=== PATIENT | female | born 1995 ===

== ENCOUNTER 2021-09-02 23:31 | Inpatient (IN) | payer MEDICAID ==
[2021-09-03] MEDS ORDERED: TERBUTALINE 1 MG/1 ML INJ SUB-Q SCH
[2021-09-03] MEDS ORDERED: LACTATED RINGERS 500 ML IV ONE
[2021-09-03] MEDS ORDERED: NIFEdipine*For Tocolysis only* 10 MG CAPSULE PO STA (00:31)
[2021-09-03] MEDS ORDERED: MORPHINE 2 MG/1 ML INJ IM ONE (00:34)
[2021-09-03] MEDS: NITROFURANTOIN MONOHYD/M-CRYST 100 MG CAP PO SCH ×3 (02:28→21:54)
[2021-09-03] MEDS ORDERED: miSOPROStol 200 MCG TAB PR PRN (13:24)
[2021-09-03] MEDS ORDERED: MAGNESIUM SULFATE 4 GM/100 ML BAG IV ONE (14:04)
[2021-09-03] MEDS ORDERED: MAGNESIUM SULFATE 40GM/1000ML 40 GM/1,000 ML BAG IV SCH (15:00)
[2021-09-03] MEDS ORDERED: DOCUSATE SODIUM 100 MG CAP PO PRN (17:33)
--- NOTE | 2021-09-03 18:10 | History and Physical Report ---
History of Present Illness Date of examination: 09/03/21 Date of admission: 09/03/2021 Chief complaint: I'm in pain History of present illness: Pt is a 26 year old who presents with complaint of left sided back pain with concurrent abdominal pain. Pt was also having contractions on presentation. Pt rates the pain as 9/10. She has also be writhing and vomiting. Past History - Obstetrical History : 1 Medications and Allergies Allergies Allergy/AdvReac Type Severity Reaction Status Date / Time No Known Allergies Allergy Unverified 09/01/21 15:21 Home Medications Medication Instructions Recorded Confirmed Last Taken Type Nitrofurantoin [place]/M-Cryst 100 mg PO Q12HR #14 capsule 09/02/21 Unknown Rx [Macrobid CAP] Active Meds: Active Medications Acetaminophen (Acetaminophen 325 Mg Tab) 650 mg PO Q4H PRN PRN Reason: Pain MILD(1-3)/Fever >100.5/BARKER Docusate Sodium (Docusate Sodium 100 Mg Cap) 100 mg PO Q12H PRN PRN Reason: Constipation Lactated Ringer's (Lactated Ringers) 1,000 mls @ 125 mls/hr IV DIRECT GA Magnesium Sulfate (Magnesium Sulfate 40gm/1000ml) 40 gm in 1,000 mls @ 50 mls/hr IV DIRECT GA Last Admin: 09/03/21 15:10 Dose: 2 gm/hr, 50 mls/hr Magnesium Sulfate (Magnesium Sulfate 4gm/100ml) 4 gm in 100 mls @ 25 mls/hr IV ONCE ONE Stop: 09/03/21 18:03 Last Admin: 09/03/21 14:39 Dose: 25 mls/hr Cefazolin Sodium (Ancef/Ns 1 Gm/50 Ml) 1 gm in 50 mls @ 100 mls/hr IV Q8H GA; Protocol Misoprostol (Misoprostol 200 Mcg Tab) 800 mcg WA ONCE PRN PRN Reason: Uterine Bleeding Morphine Sulfate (Morphine 2 Mg/1 Ml Inj) 2 mg IV Q4H PRN PRN Reason: Pain, Moderate (4-6) Multivitamins/Iron/Calcium ( Qwb73-Rv Fumarate-Folic Acid Vit Tab) 1 each PO QDAY GA Nitrofurantoin Macrocrystals (Nitrofurantoin Monohyd/M-Cryst 100 Mg Cap) 100 mg PO Q12HR GA Last Admin: 09/03/21 14:37 Dose: 100 mg Terbutaline Sulfate (Terbutaline 1 Mg/1 Ml Inj) 0.25 mg SUB-Q Q20MIN [facility] Stop: 09/05/21 00:01 - Vital Signs Vital signs: Vital Signs Pulse BP Pulse Ox 95 H 127/78 98 09/02/21 23:56 09/02/21 23:56 09/02/21 23:56 Temp Pulse Resp BP Pulse Ox 98 F 110 H 20 102/59 96 09/03/21 16:37 09/03/21 17:40 09/03/21 13:50 09/03/21 17:40 09/03/21 17:38 - Obstetrical FHR: auscultation normal Cervical Dilatation: 0 Results All other labs normal.
[2021-09-03] MEDS: ceFAZolin/NS 1 GM/50 ML 1 GM/50 ML BAG IV SCH (18:28)
[2021-09-03] MEDS: MORPHINE 2 MG/1 ML INJ IV PRN ×2 (18:29→21:56)
[2021-09-03 19:52] LABS: Basophils % (Auto) 0.1 % (0.0-1.8); Hematocrit 37.5 % (30.3-42.9); Hemoglobin 12.9 gm/dl (10.1-14.3); Lymphocytes # (Auto) 1.1 K/mm3 (1.2-5.4); Lymphocytes % (Auto) 7.2 % (13.4-35.0); Mean Corpuscular HGB Conc 34 % (30-34); Mean Corpuscular Volume 97 fl (79-97); Monocytes # (Auto) 1.3 K/mm3 (0.0-0.8); Monocytes % (Auto) 8.3 % (0.0-7.3); Platelet Count 210 K/mm3 (140-440); Red Blood Count 3.87 M/mm3 (3.65-5.03); Red Cell Distribution Width 12.7 % (13.2-15.2)
[2021-09-03] MEDS: LACTATED RINGERS 1,000 ML IV SCH (21:33)
[2021-09-04] MEDS: MORPHINE 2 MG/1 ML INJ IV PRN ×3 (01:57→22:08)
[2021-09-04] MEDS: ceFAZolin/NS 1 GM/50 ML 1 GM/50 ML BAG IV SCH ×4 (07:32→22:12)
[2021-09-04] MEDS: PRENATAL VIT27-FE FUMARATE-FOLIC ACID VIT TAB PO SCH (10:14)
[2021-09-04] MEDS: NITROFURANTOIN MONOHYD/M-CRYST 100 MG CAP PO SCH ×2 (10:14→22:06)
[2021-09-04] MEDS ORDERED: ONDANSETRON 4 MG/2 ML INJ ONE (17:38)
--- NOTE | 2021-09-04 23:52 | Progress Note ---
Assessment and Plan 26 year old G1 presenting with pain that is highly suspicious for pyelonephritis or kidney stones. Pt also complains of pain with normal movement. Pt seems to have minimal pain tolerance. I explained to patient that movement is normal part of and that we can not stop it. I did explain that her pain is likely renal in origin and is just radiating to other parts of abdomen. Will continue on antibiotics. Will continue on procardia. Order renal ultrasound. Heating pad to back to help with discomfort. Subjective - Subjective Date of service: 09/04/21 Interval history: Pt is a 26 year old who presents with complaint of left sided back pain with concurrent abdominal pain. Pt was also having contractions on presentation. Pt rates the pain as 9/10. She has also be writhing and vomiting. Patient reports: other (back pain) Objective - Vital Signs Vital Signs: Vital Signs - 12hr 09/04/21 09/04/21 09/04/21 11:53 11:58 12:03 Temperature Pulse Rate 99 H 104 H 101 H Respiratory Rate Blood Pressure Blood Pressure [Right] O2 Sat by Pulse 97 96 96 Oximetry O2 Sat by Pulse Oximetry [ Bilateral] 09/04/21 09/04/21 09/04/21 12:08 12:13 12:18 Temperature Pulse Rate 106 H 105 H 100 H Respiratory Rate Blood Pressure Blood Pressure [Right] O2 Sat by Pulse 96 96 96 Oximetry O2 Sat by Pulse Oximetry [ Bilateral] 09/04/21 09/04/21 09/04/21 12:23 12:28 12:33 Temperature Pulse Rate 97 H 107 H 105 H Respiratory Rate Blood Pressure Blood Pressure [Right] O2 Sat by Pulse 96 97 98 Oximetry O2 Sat by Pulse Oximetry [ Bilateral] 09/04/21 09/04/21 09/04/21 12:38 12:43 12:48 Temperature Pulse Rate 103 H 101 H 101 H Respiratory Rate Blood Pressure Blood Pressure [Right] O2 Sat by Pulse 97 97 97 Oximetry O2 Sat by Pulse Oximetry [ Bilateral] 09/04/21 09/04/21 09/04/21 12:53 12:58 13:03 Temperature Pulse Rate 104 H 108 H 100 H Respiratory Rate Blood Pressure Blood Pressure [Right] O2 Sat by Pulse 97 96 97 Oximetry O2 Sat by Pulse Oximetry [ Bilateral] 09/04/21 09/04/21 09/04/21 13:08 13:13 13:18 Temperature Pulse Rate 109 H 103 H 107 H Respiratory Rate Blood Pressure Blood Pressure [Right] O2 Sat by Pulse 96 96 97 Oximetry O2 Sat by Pulse Oximetry [ Bilateral] 09/04/21 09/04/21 09/04/21 13:23 13:28 13:33 Temperature Pulse Rate 102 H 108 H 101 H Respiratory Rate Blood Pressure Blood Pressure [Right] O2 Sat by Pulse 96 97 97 Oximetry O2 Sat by Pulse Oximetry [ Bilateral] 09/04/21 09/04/21 09/04/21 13:38 13:43 13:48 Temperature Pulse Rate 105 H 104 H 106 H Respiratory Rate Blood Pressure Blood Pressure [Right] O2 Sat by Pulse 95 96 97 Oximetry O2 Sat by Pulse Oximetry [ Bilateral] 09/04/21 09/04/21 09/04/21 13:53 13:58 14:03 Temperature Pulse Rate 105 H 105 H 106 H Respiratory Rate Blood Pressure Blood Pressure [Right] O2 Sat by Pulse 97 97 97 Oximetry O2 Sat by Pulse Oximetry [ Bilateral] 09/04/21 09/04/21 09/04/21 14:09 14:12 14:14 Temperature Pulse Rate 107 H 101 H 102 H Respiratory Rate Blood Pressure 121/78 Blood Pressure [Right] O2 Sat by Pulse 97 96 Oximetry O2 Sat by Pulse Oximetry [ Bilateral] 09/04/21 09/04/21 09/04/21 14:19 14:23 14:24 Temperature 98.4 F Pulse Rate 102 H 105 H Respiratory 16 Rate Blood Pressure Blood Pressure [Right] O2 Sat by Pulse 96 97 Oximetry O2 Sat by Pulse Oximetry [ Bilateral] 09/04/21 09/04/21 09/04/21 14:29 14:34 14:39 Temperature Pulse Rate 106 H 98 H 110 H Respiratory Rate Blood Pressure Blood Pressure [Right] O2 Sat by Pulse 97 96 97 Oximetry O2 Sat by Pulse Oximetry [ Bilateral] 09/04/21 09/04/21 09/04/21 17:31 17:36 17:41 Temperature Pulse Rate 98 H 100 H 98 H Respiratory Rate Blood Pressure 117/73 Blood Pressure [Right] O2 Sat by Pulse 98 97 97 Oximetry O2 Sat by Pulse Oximetry [ Bilateral] 09/04/21 09/04/21 09/04/21 18:00 19:00 21:17 Temperature 98.4 F Pulse Rate 89 Respiratory 16 Rate Blood Pressure 127/73 Blood Pressure [Right] O2 Sat by Pulse 97 Oximetry O2 Sat by Pulse 97 Oximetry [ Bilateral] 09/04/21 09/04/21 09/04/21 21:22 21:25 21:27 Temperature 98.7 F Pulse Rate 90 89 95 H Respiratory 18 Rate Blood Pressure Blood Pressure 127/73 [Right] O2 Sat by Pulse 97 96 97 Oximetry O2 Sat by Pulse Oximetry [ Bilateral] 09/04/21 09/04/21 09/04/21 21:32 21:37 21:42 Temperature Pulse Rate 92 H 104 H 98 H Respiratory Rate Blood Pressure Blood Pressure [Right] O2 Sat by Pulse 97 98 97 Oximetry O2 Sat by Pulse Oximetry [ Bilateral] 09/04/21 09/04/21 09/04/21 21:47 21:52 21:57 Temperature Pulse Rate 114 H 93 H 93 H Respiratory Rate Blood Pressure Blood Pressure [Right] O2 Sat by Pulse 94 97 97 Oximetry O2 Sat by Pulse Oximetry [ Bilateral] 09/04/21 09/04/21 09/04/21 22:02 22:07 22:08 Temperature Pulse Rate 85 105 H Respiratory 18 Rate Blood Pressure Blood Pressure [Right] O2 Sat by Pulse 97 95 Oximetry O2 Sat by Pulse Oximetry [ Bilateral] - Exam Cardiovascular: Regular rate, Normal S1, Normal S2 Abdomen: Present: normal appearance, soft, normal bowel sounds Cervical Dilatation: 0 - Labs Labs: Abnormal Labs 09/03/21 18:24 WBC 15.5 H MCH 33 H RDW 12.7 L Lymph % (Auto) 7.2 L [place] % (Auto) 8.3 H Lymph # (Auto) 1.1 L [place] # (Auto) 1.3 H Seg Neutrophils % 84.4 H Seg Neutrophils # 13.0 H
[2021-09-05 00:58] LABS: Basophils % (Auto) 0.2 % (0.0-1.8); Eosinophils # (Auto) 0.1 K/mm3 (0.0-0.4); Eosinophils % (Auto) 0.5 % (0.0-4.3); Hematocrit 35.4 % (30.3-42.9); Hemoglobin 11.9 gm/dl (10.1-14.3); Lymphocytes # (Auto) 0.9 K/mm3 (1.2-5.4); Lymphocytes % (Auto) 8.1 % (13.4-35.0); Mean Corpuscular HGB Conc 34 % (30-34); Mean Corpuscular Volume 96 fl (79-97); Monocytes # (Auto) 0.8 K/mm3 (0.0-0.8); Monocytes % (Auto) 7.3 % (0.0-7.3); Platelet Count 204 K/mm3 (140-440); Red Blood Count 3.69 M/mm3 (3.65-5.03); Red Cell Distribution Width 12.5 % (13.2-15.2)
[2021-09-05] MEDS: MORPHINE 2 MG/1 ML INJ IV PRN ×4 (02:00→22:03)
[2021-09-05] MEDS: NITROFURANTOIN MONOHYD/M-CRYST 100 MG CAP PO SCH ×2 (12:45→23:02)
[2021-09-05] MEDS: PRENATAL VIT27-FE FUMARATE-FOLIC ACID VIT TAB PO SCH (12:46)
[2021-09-05] MEDS: ceFAZolin/NS 1 GM/50 ML 1 GM/50 ML BAG IV SCH ×2 (12:49→20:31)
[2021-09-05] MEDS: ACETAMINOPHEN 325 MG TAB PO PRN (16:01)
[2021-09-05] MEDS: levoFLOXacin 500 MG TAB PO SCH (18:38)
[2021-09-05] MEDS ORDERED: ACETAMINOPHEN 500 MG TAB PO ONE (23:58)
[2021-09-06] MEDS: LACTATED RINGERS 1,000 ML IV SCH ×3 (00:07→16:35)
[2021-09-06] MEDS: MORPHINE 2 MG/1 ML INJ IV PRN ×2 (02:56→07:55)
[2021-09-06] MEDS: ceFAZolin/NS 1 GM/50 ML 1 GM/50 ML BAG IV SCH ×3 (04:25→22:14)
[2021-09-06] MEDS: ACETAMINOPHEN 325 MG TAB PO PRN (06:54)
--- NOTE | 2021-09-06 08:10 | Ultrasound Report ---
ULTRASOUND ABDOMEN, COMPLETE INDICATION: left flank pain COMPARISON: None available LIMITATIONS: None FINDINGS: Pancreas: Visualized portions show no significant abnormalities. Abdominal Aorta: No significant abnormalities. IVC: Normal Liver: Normal Main Portal Vein: Normal flow seen. Gallbladder: Multiple gallstones are noted. Gallbladder wall is at the upper end of the normal range in thickness at 3 mm. I do not clearly see fluid within or surrounding the wall. Bile ducts: Normal. Common Bile Duct measures 3 mm. Right Kidney: Mild right pelvocaliectasis Left Kidney: Moderate left pelvocaliectasis Spleen: Normal Free fluid: None Additional Findings: None IMPRESSION: 1. Mild right and moderate left renal collecting system prominence of unknown chronicity. Source is n ot clear. 2. Cholelithiasis without acute change seen Signer Name: Jorge Kumar MD Signed: 09/04/2021 8:15 PM Workstation Name: [id number]
--- NOTE | 2021-09-06 10:30 | Progress Note ---
Assessment and Plan HD 2 with pyeloneprhritis. Will add Levaquin to antibiotics as ancef does not appear to be effective. Subjective - Subjective Date of service: 09/05/21 Interval history: Pt is a 26 year old who presents with complaint of left sided back pain with concurrent abdominal pain. Pt was also having contractions on presentation. Pt rates the pain as 9/10. She has also be writhing and vomiting. Patient reports: new complaints (back pain is the same, pt c/o pain with movement), movement normal, other (back pain) Objective - Vital Signs Vital Signs: Vital Signs - 12hr 09/05/21 09/05/21 09/06/21 23:51 23:55 01:00 Temperature 101.2 F H 99.8 F H Pulse Rate 118 H 118 H Respiratory 18 Rate Blood Pressure 125/77 Blood Pressure 125/77 [Right] O2 Sat by Pulse Oximetry O2 Sat by Pulse Oximetry [ Bilateral] 09/06/21 09/06/21 09/06/21 04:15 07:05 07:09 Temperature 98.1 F Pulse Rate 92 H 134 H 115 H Respiratory 16 Rate Blood Pressure 121/70 112/78 Blood Pressure 121/70 [Right] O2 Sat by Pulse 95 Oximetry O2 Sat by Pulse Oximetry [ Bilateral] 09/06/21 09/06/21 09/06/21 07:10 07:15 07:20 Temperature Pulse Rate 119 H 117 H 113 H Respiratory Rate Blood Pressure Blood Pressure [Right] O2 Sat by Pulse 98 98 97 Oximetry O2 Sat by Pulse Oximetry [ Bilateral] 09/06/21 09/06/21 09/06/21 07:25 07:30 07:35 Temperature Pulse Rate 124 H 126 H 126 H Respiratory Rate Blood Pressure Blood Pressure [Right] O2 Sat by Pulse 98 97 98 Oximetry O2 Sat by Pulse Oximetry [ Bilateral] 09/06/21 09/06/21 09/06/21 07:36 07:37 07:40 Temperature 98.3 F Pulse Rate 125 H 117 H 125 H Respiratory 16 Rate Blood Pressure 113/65 Blood Pressure 113/65 [Right] O2 Sat by Pulse 97 98 Oximetry O2 Sat by Pulse 98 Oximetry [ Bilateral] 09/06/21 09/06/21 09/06/21 07:45 07:50 07:55 Temperature Pulse Rate 119 H 134 H 108 H Respiratory Rate Blood Pressure Blood Pressure [Right] O2 Sat by Pulse 98 96 97 Oximetry O2 Sat by Pulse Oximetry [ Bilateral] 09/06/21 09/06/21 09/06/21 08:00 08:05 08:10 Temperature Pulse Rate 111 H 104 H 110 H Respiratory Rate Blood Pressure Blood Pressure [Right] O2 Sat by Pulse 98 97 97 Oximetry O2 Sat by Pulse Oximetry [ Bilateral] 09/06/21 09/06/21 09/06/21 08:15 08:20 08:25 Temperature Pulse Rate 109 H 105 H 105 H Respiratory Rate Blood Pressure Blood Pressure [Right] O2 Sat by Pulse 97 96 96 Oximetry O2 Sat by Pulse Oximetry [ Bilateral] 09/06/21 09/06/21 09/06/21 08:30 08:35 08:40 Temperature Pulse Rate 98 H 100 H 99 H Respiratory Rate Blood Pressure Blood Pressure [Right] O2 Sat by Pulse 97 96 96 Oximetry O2 Sat by Pulse Oximetry [ Bilateral] 09/06/21 09/06/21 09/06/21 08:45 08:50 08:55 Temperature Pulse Rate 102 H 96 H 96 H Respiratory Rate Blood Pressure Blood Pressure [Right] O2 Sat by Pulse 97 96 97 Oximetry O2 Sat by Pulse Oximetry [ Bilateral] 09/06/21 09/06/21 09/06/21 09:00 09:05 09:06 Temperature Pulse Rate 91 H 71 85 Respiratory Rate Blood Pressure Blood Pressure [Right] O2 Sat by Pulse 97 95 93 Oximetry O2 Sat by Pulse Oximetry [ Bilateral] 09/06/21 09/06/21 09/06/21 09:10 09:15 09:20 Temperature Pulse Rate 86 95 H 87 Respiratory Rate Blood Pressure Blood Pressure [Right] O2 Sat by Pulse 97 96 96 Oximetry O2 Sat by Pulse Oximetry [ Bilateral] - Exam Breasts: deferred Cardiovascular: Regular rate, Normal S1, Normal S2 Lungs: Normal air movement Abdomen: Present: normal appearance, soft, normal bowel sounds Uterus: Present: normal FHR: auscultation normal Extremities: normal - Labs Labs: Abnormal Labs 09/03/21 09/05/21 18:24 00:42 WBC 15.5 H 11.5 H MCH 33 H RDW 12.7 L 12.5 L Lymph % (Auto) 7.2 L 8.1 L [place] % (Auto) 8.3 H Lymph # (Auto) 1.1 L 0.9 L [place] # (Auto) 1.3 H Seg Neutrophils % 84.4 H 83.9 H Seg Neutrophils # 13.0 H 9.6 H
[2021-09-06] MEDS: NITROFURANTOIN MONOHYD/M-CRYST 100 MG CAP PO SCH ×2 (11:45→22:13)
[2021-09-06] MEDS: PRENATAL VIT27-FE FUMARATE-FOLIC ACID VIT TAB PO SCH (11:47)
[2021-09-06] MEDS: HYDROcodone/ACETAMINOPHEN 5-325 MG TAB PO PRN ×2 (15:24→22:06)
[2021-09-06] MEDS: levoFLOXacin 500 MG TAB PO SCH (18:20)
[2021-09-07] MEDS: ACETAMINOPHEN 325 MG TAB PO PRN (01:40)
[2021-09-07] MEDS: HYDROcodone/ACETAMINOPHEN 5-325 MG TAB PO PRN (08:00)
[2021-09-07] MEDS: LACTATED RINGERS 1,000 ML IV SCH (08:01)
[2021-09-07 08:03] VITALS: BP 114/76
--- NOTE | 2021-09-07 09:04 | Progress Note ---
Assessment and Plan HD 4 with pyelonephritis and gallstones. Pt exam is objectively better. Pt needs lots of encouragement to ambulate, however, her pain is now controlled with oral pain meds and oral antibiotics. Pt has been afebrile for 24 hours and is able to go home. Pt advised to avoid fatty foods and spicy foods to prevent gall bladder flare. Pt advised that she MUST TAKE ALL ANTIBIOTICS. Subjective - Subjective Date of service: 09/07/21 Interval history: Pt is a 26 year old who presents with complaint of left sided back pain with concurrent abdominal pain. Pt had gallstones on ultrasound and also has pyelonephritis. Patient reports: movement normal, other (back pain and mild abdominal pain) Objective - Vital Signs Vital Signs: Vital Signs - 12hr 09/06/21 09/06/21 09/06/21 22:20 22:21 22:22 Temperature 98.5 F Pulse Rate 117 H 98 H Respiratory Rate Blood Pressure 123/78 O2 Sat by Pulse 95 Oximetry O2 Sat by Pulse 95 Oximetry [ Bilateral] 09/06/21 09/06/21 09/06/21 22:26 22:31 22:36 Temperature Pulse Rate 108 H 108 H 109 H Respiratory Rate Blood Pressure O2 Sat by Pulse 98 97 98 Oximetry O2 Sat by Pulse Oximetry [ Bilateral] 09/06/21 09/06/21 09/06/21 22:41 22:46 22:51 Temperature Pulse Rate 104 H 106 H 104 H Respiratory Rate Blood Pressure O2 Sat by Pulse 97 97 97 Oximetry O2 Sat by Pulse Oximetry [ Bilateral] 09/06/21 09/06/21 09/06/21 22:56 23:01 23:06 Temperature Pulse Rate 100 H 102 H 103 H Respiratory Rate Blood Pressure O2 Sat by Pulse 96 97 98 Oximetry O2 Sat by Pulse Oximetry [ Bilateral] 09/06/21 09/06/21 09/07/21 23:11 23:16 03:55 Temperature 98.3 F Pulse Rate 101 H 109 H Respiratory Rate Blood Pressure O2 Sat by Pulse 97 97 Oximetry O2 Sat by Pulse 95 Oximetry [ Bilateral] 09/07/21 09/07/21 08:00 08:02 Temperature 97.5 F L Pulse Rate 85 Respiratory 20 Rate Blood Pressure 114/76 O2 Sat by Pulse 98 Oximetry O2 Sat by Pulse 97 Oximetry [ Bilateral] - Exam Breasts: deferred Cardiovascular: Regular rate, Normal S1, Normal S2 Lungs: Clear to auscultation, Normal air movement Abdomen: Present: normal appearance, soft, normal bowel sounds, other (significantly less back pain) Vulva: both: normal Uterus: Present: normal, firm FHR: auscultation normal Cervical Dilatation: 0 Uterine Contraction Intensity: Mild Extremities: normal Deep Tendon Reflex Grade: Normal +2 - Labs Labs: Abnormal Labs 09/03/21 09/05/21 18:24 00:42 WBC 15.5 H 11.5 H MCH 33 H RDW 12.7 L 12.5 L Lymph % (Auto) 7.2 L 8.1 L [place] % (Auto) 8.3 H Lymph # (Auto) 1.1 L 0.9 L [place] # (Auto) 1.3 H Seg Neutrophils % 84.4 H 83.9 H Seg Neutrophils # 13.0 H 9.6 H
--- NOTE | 2021-09-07 09:06 | Discharge Summary ---
Providers - Providers Date of Admission: 09/03/21 17:33 Date of discharge: 09/07/21 Attending physician: EBONIE VYAS Primary care physician: EBONIE VYAS Hospitalization Reason for admission: other (PYELONEPHRITIS) Delivery: other Laceration: none complications: none Discharge diagnosis: other (pyelonephritis) Condition at discharge: Stable Disposition: 01 HOME / SELF CARE / HOMELESS Plan - Discharge Medications Prescriptions: levoFLOXacin [Levaquin TAB] 500 mg PO Q24HR #7 tablet HYDROcodone/APAP 5-325 [[place] 5-325 mg TAB] 2 each PO Q6H PRN #40 tablet PRN Reason: Pain, Moderate (4-6) - Provider Discharge Summary Activity: routine Diet: routine Instructions: routine Additional instructions: [] Smoking cessation referral if applicable(refer to patient education folder for contact #) [] Refer to [facility]'s [facility] Booklet Call your doctor immediately for: * Fever > 100.5 * Heavy vaginal bleeding ( >1 pad per hour) * Severe persistent headache * Shortness of breath * Reddened, hot, painful area to leg or breast * Drainage or odor from incision. * Keep incision clean and dry at all times and follow doctor's instructions regarding bathing/showering - Follow up plan Follow up: EBONIE VYAS MD [Primary Care Provider] - 7 Days
== END 2021-09-07 09:48 | disposition home or self-care (01) | DRG 781 ==
LOC: TRG 23:31 → APU 23:32 → TRG 23:32 → LD 09-03 13:39 → TRG 09-03 17:33 → LD 09-03 17:33
PROVIDERS: ADMIT Obstetrics & Gynecology; ATTEND Obstetrics & Gynecology
DX: O23.03 Infections of kidney in pregnancy, third trimester (principal); Z3A.35 35 weeks gestation of pregnancy; Z20.822 Contact with and (suspected) exposure to COVID-19
CPT/HCPCS: 36415; 59025; 76700; 81001; 85025; 85027; 86592; 86850; 86900; 86901; 87086; 96360; 96361; 96374; 96376; G0378; J0595; J0690; J2270; J2405; J3105; J3475; J7120; Q0177; U0003

== ENCOUNTER 2021-09-11 22:53 | Inpatient (IN) | payer MEDICAID ==
[2021-09-11] MEDS ORDERED: LACTATED RINGERS 1,000 ML IV SCH (23:45)
[2021-09-11] MEDS ORDERED: ACETAMINOPHEN 325 MG TAB PO PRN (23:54)
[2021-09-12] MEDS ORDERED: MORPHINE 2 MG/1 ML INJ IV PRN
[2021-09-12 00:32] LABS: Hematocrit 38.7 % (30.3-42.9); Hemoglobin 13.6 gm/dl (10.1-14.3); Mean Corpuscular HGB Conc 35 % (30-34); Mean Corpuscular Volume 94 fl (79-97); Platelet Count 387 K/mm3 (140-440); Red Blood Count 4.11 M/mm3 (3.65-5.03); Red Cell Distribution Width 12.6 % (13.2-15.2)
[2021-09-12] MEDS: ONDANSETRON 4 MG/2 ML INJ IV PRN ×2 (00:32→06:52)
[2021-09-12] MEDS: MORPHINE 2 MG/1 ML INJ IV PRN ×2 (00:32→03:21)
[2021-09-12 00:45] LABS: Alanine Aminotransferase 164 units/L (7-56); Albumin 3.5 g/dL (3.9-5); BUN/Creatinine Ratio 8; Blood Urea Nitrogen 5 mg/dL (7-17); Calcium 9.8 mg/dL (8.4-10.2); Hemolysis Index 24
--- NOTE | 2021-09-12 02:06 | Ultrasound Report ---
ULTRASOUND ABDOMEN, COMPLETE INDICATION / CLINICAL INFORMATION: abd pain, gall stones, . COMPARISON: None available. TECHNIQUE: Using a transabdominal probe, multiple grayscale and color Doppler images of the pancreas, abdominal aorta, inferior vena cava, liver, gallbladder, bilateral kidneys, and spleen were captured and stored. FINDINGS: PANCREAS: No significant abnormality. ABDOMINAL AORTA: No significant abnormality. IVC: No significant abnormality. LIVER: No significant abnormality. Right hepatic lobe measures 16.7 cm. Normal hepatopedal blood flow in the main portal vein. GALLBLADDER: Multiple small gallstones are noted throughout the gallbladder fundus. On some images th e wall is thickened measuring 4 mm. No intramural edema or pericholecystic fluid demonstrated. BILE DUCTS: No significant abnormality. Common bile duct measures 3.2 mm mm. KIDNEYS: Right: Right kidney measures 12.9 cm in craniocaudal dimension. Cortex is 1.7 cm. Mild hydro nephrosis is demonstrated. Left: Left kidney measures 13.8 cm in craniocaudal dimension with cortica l thickness of 1.8 cm. Mild/moderate hydronephrosis is demonstrated. SPLEEN: No significant abnormality. FREE FLUID: None. ADDITIONAL FINDINGS: None. IMPRESSION: 1. Cholelithiasis with mild gallbladder wall thickening. 2. Bilateral mild/moderate hydronephrosis with pronounced on the left without obvious nephrolithiasis . Findings nonspecific in the setting of .. Signer Name: Brett Sue II, MD Signed: 09/12/2021 2:01 AM Workstation Name: [id number]
--- NOTE | 2021-09-12 02:07 | Ultrasound Report ---
US OB limited, US OB BPP wo non-stress INDICATION / CLINICAL INFORMATION: presentation, heber COMPARISON: None available. TECHNIQUE: Using a transcutaneous probe, multiple grayscale, color Doppler, and spectral Doppler imag es of the uterus and fetus were captured and stored. Additional biophysical profile was performed. FINDINGS: Single cephalic fetus heart rate 150 bpm. Amniotic fluid index is within normal limits measuring 7.4 cm. BREATHING MOVEMENT = 2 GROSS BODY MOVEMENT = 2 TONE = 2 QUALITATIVE AMNIOTIC FLUID VOLUME = 2 TOTAL BIOPHYSICAL SCORE = 8/8 IMPRESSION: 1. Normal biophysical profile score 8/8. Signer Name: Brett Sue II, MD Signed: 09/12/2021 2:02 AM Workstation Name: [id number]
[2021-09-12 04:09] LABS: Anisocytosis 1+; Basophils % (Manual) 0 % (0.0-1.8); Eosinophils % (Manual) 0 % (0.0-4.3); Platelet Estimate Consistent w Auto; Total Cells Counted 100
[2021-09-12] MEDS ORDERED: BETAMET ACET/BETAMET NA PH 6 MG/ML INJ 5 ML MDV IM SCH (06:45)
--- NOTE | 2021-09-12 06:51 | History and Physical Report ---
History of Present Illness Date of examination: 09/12/21 Date of admission: 09/11/21 23:54 Chief complaint: "my gallstone pain" History of present illness: Pt is a 26 year old female primigravida LADONNA 10/07/21 at 36w3d who presents with intractable abdominal pain. This is the patient's third hospital visit over the past two weeks. She was initially diagnosed with pyelnonephritis and cholelithiasis and placed on antibiotics. After her most recent admission from 09/03-09/07 she was discharged home on [place]. She reports that her pain had persisted despite taking the pain medication. She also reports nausea, and two episodes of emesis before admission. She reports irregular contractions, but denies vaginal bleeding or leakage of fluid. Her GBS status is unknown. Past History Past Medical History: asthma, migraines, other (cholelithiasis ) Past Surgical History: no surgical history Family/Genetic History: diabetes, hypertension Social history: no significant social history - Obstetrical History Expected Date of Delivery: 10/07/21 Actual Gestation: 36 Week(s) 3 Day(s) : 1 Medications and Allergies Allergies Allergy/AdvReac Type Severity Reaction Status Date / Time No Known Allergies Allergy Unverified 09/01/21 15:21 Home Medications Medication Instructions Recorded Confirmed Last Taken Type Nitrofurantoin [place]/M-Cryst 100 mg PO Q12HR #14 capsule 09/02/21 Unknown Rx [Macrobid CAP] HYDROcodone/APAP 5-325 [[place] 2 each PO Q6H PRN #40 tablet 09/07/21 Unknown Rx 5-325 mg TAB] levoFLOXacin [Levaquin TAB] 500 mg PO Q24HR #7 tablet 09/07/21 Unknown Rx Active Meds: Active Medications Acetaminophen (Acetaminophen 325 Mg Tab) 650 mg PO Q4H PRN PRN Reason: Pain MILD(1-3)/Fever >100.5/BARKER Betamethasone Acet/Betameth SodPhos (Betamet Acet/Betamet Na Ph 6 Mg/Ml Inj 5 Ml Mdv) 12 mg IM Q24H GA Stop: 09/13/21 06:46 Last Admin: 09/12/21 06:31 Dose: 12 mg Docusate Sodium (Docusate Sodium 100 Mg Cap) 100 mg PO Q12H PRN PRN Reason: Constipation Famotidine (Famotidine 20 Mg/2 Ml Inj) 20 mg IV BID [facility] Dextrose/Lactated Ringer's (D5lr) 1,000 mls @ 150 mls/hr IV DIRECT GA Last Admin: 09/12/21 06:33 Dose: 150 mls/hr Morphine Sulfate (Morphine 2 Mg/1 Ml Inj) 3 mg IV Q3H PRN PRN Reason: Pain , Severe (7-10) Last Admin: 09/12/21 03:21 Dose: 3 mg Morphine Sulfate (Morphine 2 Mg/1 Ml Inj) 2 mg IV Q3H PRN PRN Reason: Pain, Moderate (4-6) Last Admin: 09/12/21 06:33 Dose: 2 mg Multivitamins/Iron/Calcium ( Nev12-Qs Fumarate-Folic Acid Vit Tab) 1 each PO QDAY [facility] Ondansetron HCl (Ondansetron 4 Mg/2 Ml Inj) 4 mg IV Q6H PRN PRN Reason: Nausea And Vomiting Last Admin: 09/12/21 00:32 Dose: 4 mg Review of Systems All systems: negative Gastrointestinal: nausea - Vital Signs Vital signs: Vital Signs Pulse BP 85 135/88 09/11/21 23:04 09/11/21 23:04 Temp Pulse Resp BP Pulse Ox 97.6 F 129 H 16 129/69 97 09/11/21 23:05 09/12/21 06:47 09/11/21 23:05 09/12/21 01:37 09/12/21 06:47 - Physical Exam Breasts: Positive: deferred Abdomen: Positive: soft (gravid ), tenderness Uterus: Positive: enlarged (gravid ) Extremities: Positive: normal - Obstetrical Uterine Contraction Monitor Mode: External Cervical Dilatation: 0 (per RN ) Uterine Contraction Pattern: Irregular Uterine Tone Measurement Phase: Resting Results Result Diagrams: 09/12/21 00:10 09/12/21 00:10 Abnormal lab results 09/12/21 09/12/21 Range/Units 00:10 00:10 WBC 18.0 H (4.5-11.0) K/mm3 MCH 33 H (28-32) pg MCHC 35 H (30-34) % RDW 12.6 L (13.2-15.2) % Seg Neuts % (Manual) 91.0 H (40.0-70.0) % Lymphocytes % (Manual) 3.0 L (13.4-35.0) % Seg Neutrophils # Man 16.4 H (1.8-7.7) K/mm3 Lymphocytes # (Manual) 0.5 L (1.2-5.4) K/mm3 Monocytes # (Manual) 1.1 H (0.0-0.8) K/mm3 Carbon Dioxide 19 L (22-30) mmol/L BUN 5 L (7-17) mg/dL AST 373 H (5-40) units/L ALT 164 H (7-56) units/L Alkaline Phosphatase 277 H (35-129) units/L Albumin 3.5 L (3.9-5) g/dL All other labs normal. Assessment and Plan A: IUP at 36w3d Abdominal Pain, severe Cholelithiasis Asthma GBS unknown P: Admit to antepartum service IV hydration IV Morphine PRN General Surgery Consultation MFM Consultation Continue to monitor maternal and clinical status
[2021-09-12] MEDS ORDERED: D5W/LACTATED RINGERS 1,000 ML IV SCH (07:00)
[2021-09-12] MEDS ORDERED: FAMOTIDINE 20 MG/2 ML INJ IV SCH (07:00)
[2021-09-12 07:01] LABS: Bacteria,Urine 1+ /HPF (Negative); Mucus,Urine FEW /HPF
[2021-09-12 07:07] LABS: Bilirubin,Urine Negative (Negative); Blood,Urine Negative (Negative); Color,Urine Yellow (Yellow)
[2021-09-12] MEDS ORDERED: ceFAZolin/Water 2 GM/20 ML 2 GM/20 ML SYRINGE IV ONE (09:04)
[2021-09-12] MEDS ORDERED: METOCLOPRAMIDE 10 MG/2 ML INJ ONE (09:04)
[2021-09-12] MEDS ORDERED: OXYTOCIN DRIP 30,000 MILLIUNITS/500 ML BAG IV ONE (09:04)
--- NOTE | 2021-09-12 09:38 | Event Note ---
Date: 09/12/21 Maternal Medicine physician manager collection contacted. Case discussed, and he is in agreement with plan to move forward with delivery. General Surgeon on-call contacted. He is on his way to evaluate the patient. Preoperative ordered placed and consent signed for primary . Continue to monitor clinical status.
[2021-09-12] MEDS ORDERED: OXYTOCIN DRIP 30 UNITS/500 ML BAG IV SCH ×2 (10:00→16:00)
[2021-09-12] MEDS ORDERED: LACTATED RINGERS 1,000 ML IV SCH (10:00)
[2021-09-12] MEDS ORDERED: ceFAZolin/Water 2 GM/20 ML 2 GM/20 ML SYRINGE IV NR (10:00)
[2021-09-12] MEDS ORDERED: FAMOTIDINE 20 MG/2 ML INJ IV ONE (10:00)
[2021-09-12] MEDS ORDERED: BICITRA ORAL LIQD 30ML PO ONE (10:00)
[2021-09-12] MEDS ORDERED: PRENATAL VIT27-FE FUMARATE-FOLIC ACID VIT TAB PO SCH (10:00)
[2021-09-12] MEDS ORDERED: METOCLOPRAMIDE 10 MG/2 ML INJ IV ONE (10:00)
--- NOTE | 2021-09-12 10:02 | Consultation ---
History of Present Illness Consult date: 09/12/21 Reason for consult: abdominal pain - History of present illness History of present illness: 26 yo female, 36 weeks with severe, diffuse abdominal pain. Pt has cholelithiasis with mildly thickened gallbladder wall, WBC of 18,000 and elevated transaminases. Total bilirubin is normal. Dr. Martins is concerned about the possibility of acute cholecystitis. She does not believe the pt is in labor. Past History Social history: no significant social history Medications and Allergies Allergies Allergy/AdvReac Type Severity Reaction Status Date / Time No Known Allergies Allergy Unverified 09/01/21 15:21 Home Medications Medication Instructions Recorded Confirmed Last Taken Type Nitrofurantoin [place]/M-Cryst 100 mg PO Q12HR #14 capsule 09/02/21 Unknown Rx [Macrobid CAP] HYDROcodone/APAP 5-325 [[place] 2 each PO Q6H PRN #40 tablet 09/07/21 Unknown Rx 5-325 mg TAB] levoFLOXacin [Levaquin TAB] 500 mg PO Q24HR #7 tablet 09/07/21 Unknown Rx Active Meds: Active Medications Acetaminophen (Acetaminophen 325 Mg Tab) 650 mg PO Q4H PRN PRN Reason: Pain MILD(1-3)/Fever >100.5/BARKER Betamethasone Acet/Betameth SodPhos (Betamet Acet/Betamet Na Ph 6 Mg/Ml Inj 5 Ml Mdv) 12 mg IM Q24H GA Stop: 09/13/21 06:46 Last Admin: 09/12/21 06:31 Dose: 12 mg Citric Acid/Sodium Citrate (Bicitra Oral Liqd 30ml) 30 ml PO ONCE ONE Stop: 09/12/21 10:01 Docusate Sodium (Docusate Sodium 100 Mg Cap) 100 mg PO Q12H PRN PRN Reason: Constipation Famotidine (Famotidine 20 Mg/2 Ml Inj) 20 mg IV BID GA Last Admin: 09/12/21 06:52 Dose: 20 mg Famotidine (Famotidine 20 Mg/2 Ml Inj) 20 mg IV ONCE ONE Stop: 09/12/21 10:01 Dextrose/Lactated Ringer's (D5lr) 1,000 mls @ 150 mls/hr IV DIRECT GA Last Admin: 09/12/21 06:33 Dose: 150 mls/hr Lactated Ringer's (Lactated Ringers) 1,000 mls @ 2,250 mls/hr IV PREOP GA Stop: 09/13/21 10:27 Oxytocin/Sodium Chloride (Pitocin/Ns 30 Unit/500ml) 30 units in 500 mls @ 0 mls/hr IV TITR GA; Protocol Cefazolin Sodium (Ancef/Sterile Water 2 Gm/20 Ml) 2 gm in 20 mls @ 80 mls/hr IV PREOP NR; Protocol Stop: 09/12/21 23:59 Metoclopramide HCl (Metoclopramide 10 Mg/2 Ml Inj) 10 mg IV ONCE ONE Stop: 09/12/21 10:01 Morphine Sulfate (Morphine 2 Mg/1 Ml Inj) 3 mg IV Q3H PRN PRN Reason: Pain , Severe (7-10) Last Admin: 09/12/21 03:21 Dose: 3 mg Morphine Sulfate (Morphine 2 Mg/1 Ml Inj) 2 mg IV Q3H PRN PRN Reason: Pain, Moderate (4-6) Last Admin: 09/12/21 06:33 Dose: 2 mg Multivitamins/Iron/Calcium ( Wii43-Ou Fumarate-Folic Acid Vit Tab) 1 each PO QDAY [facility] Ondansetron HCl (Ondansetron 4 Mg/2 Ml Inj) 4 mg IV Q6H PRN PRN Reason: Nausea And Vomiting Last Admin: 09/12/21 06:52 Dose: 4 mg Review of Systems All systems: negative (none) Exam Vital Signs Pulse BP 85 135/88 09/11/21 23:04 09/11/21 23:04 - General physical appearance Positive: well developed, well nourished, moderate distress, moderate pain - Eyes Positive: PERRL, normal occular movement - ENT Positive: normal pinna, normal nares, normal mucosa, no hearing loss, no congestion - Neck Positive: no masses, no bruits, trachea midline, no venous distension - Respiratory Positive: normal expansion, normal respiratory effort, clear to auscultation - Cardiovascular Rhythm: regular Heart Sounds: Present: S1 & S2. Absent: rub, click - Extremities Extremities: no ischemia, pulses symmetrical, No edema - Breasts Breasts: deferred - Abdomen Abdomen: Present: other (36 weeks gravid. There is mild/mod diffuse tenderness without rebound or guarding.) Results - Labs 09/12/21 00:10 09/12/21 00:10 Abnormal lab results 09/12/21 09/12/21 09/12/21 Range/Units 00:10 00:10 00:30 WBC 18.0 H (4.5-11.0) K/mm3 MCH 33 H (28-32) pg MCHC 35 H (30-34) % RDW 12.6 L (13.2-15.2) % Seg Neuts % (Manual) 91.0 H (40.0-70.0) % Lymphocytes % (Manual) 3.0 L (13.4-35.0) % Seg Neutrophils # Man 16.4 H (1.8-7.7) K/mm3 Lymphocytes # (Manual) 0.5 L (1.2-5.4) K/mm3 Monocytes # (Manual) 1.1 H (0.0-0.8) K/mm3 Carbon Dioxide 19 L (22-30) mmol/L BUN 5 L (7-17) mg/dL AST 373 H (5-40) units/L ALT 164 H (7-56) units/L Alkaline Phosphatase 277 H (35-129) units/L Albumin 3.5 L (3.9-5) g/dL Urine pH 8.0 H (5.0-7.0) Diabetes panel 09/12/21 Range/Units 00:10 Sodium 138 (137-145) mmol/L Potassium 4.2 (3.6-5.0) mmol/L Chloride 100.6 (98-107) mmol/L Carbon Dioxide 19 L (22-30) mmol/L BUN 5 L (7-17) mg/dL Creatinine 0.6 (0.6-1.2) mg/dL Glucose 85 (65-100) mg/dL Calcium 9.8 (8.4-10.2) mg/dL AST 373 H (5-40) units/L ALT 164 H (7-56) units/L Alkaline Phosphatase 277 H (35-129) units/L Total Protein 7.0 (6.3-8.2) g/dL Albumin 3.5 L (3.9-5) g/dL Calcium panel 09/12/21 Range/Units 00:10 Calcium 9.8 (8.4-10.2) mg/dL Albumin 3.5 L (3.9-5) g/dL Pituitary panel 09/12/21 Range/Units 00:10 Sodium 138 (137-145) mmol/L Potassium 4.2 (3.6-5.0) mmol/L Chloride 100.6 (98-107) mmol/L Carbon Dioxide 19 L (22-30) mmol/L BUN 5 L (7-17) mg/dL Creatinine 0.6 (0.6-1.2) mg/dL Glucose 85 (65-100) mg/dL Calcium 9.8 (8.4-10.2) mg/dL Adrenal panel 09/12/21 Range/Units 00:10 Sodium 138 (137-145) mmol/L Potassium 4.2 (3.6-5.0) mmol/L Chloride 100.6 (98-107) mmol/L Carbon Dioxide 19 L (22-30) mmol/L BUN 5 L (7-17) mg/dL Creatinine 0.6 (0.6-1.2) mg/dL Glucose 85 (65-100) mg/dL Calcium 9.8 (8.4-10.2) mg/dL Total Bilirubin 0.50 (0.1-1.2) mg/dL AST 373 H (5-40) units/L ALT 164 H (7-56) units/L Alkaline Phosphatase 277 H (35-129) units/L Total Protein 7.0 (6.3-8.2) g/dL Albumin 3.5 L (3.9-5) g/dL - Imaging US - abdomen: report reviewed Assessment and Plan - Patient Problems (1) Acute cholecystitis Current Visit: Yes Status: Acute Plan to address problem: 1) Dr. Martins is going to delivery pt's baby by . She will try to assess the pt's appendix intra-operatively. If the appendix is non-inflamed, as I expect, we will then proceed with a laparoscopic cholecystectomy. 2) IV Kefzol will be administered before the . 3) Will hold on SQ Heparin since the will be done under a spinal anesthetic.
[2021-09-12] MEDS ORDERED: SODIUM CHLORIDE 0.9% IRR 1,500 ML BOTTLE IR ONE ×2 (10:38→12:43)
[2021-09-12] MEDS ORDERED: WATER FOR IRRIG STERILE 1,500 ML BOTTLE IR ONE (10:38)
[2021-09-12] MEDS ORDERED: ONDANSETRON 4 MG/2 ML INJ ONE ×2 (10:39→12:56)
[2021-09-12] MEDS ORDERED: BUPIVACAINE/PF (0.5%) 5 MG/1 ML 30 ML VIAL INFILTRATI ONE (10:40)
[2021-09-12] MEDS ORDERED: LACTATED RINGERS 1,000 ML ONE ×2 (10:40→12:42)
[2021-09-12] MEDS ORDERED: LIDOCAINE MPF (2%) 20 MG/1 ML VIAL 5 ML ONE (11:11)
[2021-09-12] MEDS ORDERED: fentaNYL 100 MCG/2 ML INJ ONE (11:12)
[2021-09-12] MEDS ORDERED: propofoL 200 MG/20 ML VIAL IV ONE (11:12)
[2021-09-12] MEDS ORDERED: SUGAMMADEX SODIUM 200 MG/2 ML VIAL IV ONE (11:20)
[2021-09-12] MEDS ORDERED: BUPIVACAINE-EPINEPHRINE/PF 0.25%-1:200,000 (30 ML) VIAL INFILTRATI ONE ×2 (11:24→12:42)
--- NOTE | 2021-09-12 12:22 | Anesthesia Day of Surgery ---
Anesthesia Day of Surgery - Day of Surgery Patient Examined: Yes Patient H&P Reviewed: Yes Patient is NPO: Yes
--- NOTE | 2021-09-12 12:27 | Anesthesia Consultation ---
Anesthesia Consult and Med Hx Date of service: 09/12/21 - Airway Anesthetic Teeth Evaluation: Dentures ROM Head & Neck: Adequate Mental/Hyoid Distance: Adequate Mallampati Class: Class II Intubation Access Assessment: Probably Good - Pulmonary Exam CTA: Yes - Cardiac Exam Cardiac Exam: RRR - Pre-Operative Health Status ASA Pre-Surgery Classification: ASA3, Emergency Proposed Anesthetic Plan: Spinal - Pulmonary Hx Asthma: Yes (childhood) COPD: No Hx Pneumonia: No - Cardiovascular System Hx Hypertension: No - Central Nervous System Hx Neuromuscular Disorder: No (migraine ) Hx Seizures: No Hx Psychiatric Problems: No - Endocrine Hx Renal Disease: No Hx End Stage Renal Disease: No Hx Hypothyroidism: No Hx Hyperthyroidism: No - Hematic Hx Anemia: No Hx Sickle Cell Disease: No - Other Systems Hx Alcohol Use: No Hx Substance Use: No Hx Obesity: No - Additional Comments Anesthesia Medical History Comments: right leg surgery for insect bite. No Anesthesia complications
[2021-09-12] MEDS ORDERED: HYDROmorphone 0.5 MG/0.5 ML INJ ONE ×3 (12:28→13:47)
--- NOTE | 2021-09-12 12:32 | Progress Note ---
Spinal Anesthesia Block - Spinal Anesthesia Block Start Time: 10:19 Stop Time: : Performed by:: CHRIS ARENAS Procedure: Patient IDed, H&P reviewed, all questions and concerns were answered, and consent was signed. Patient very anxious during procedure. Timeout was performed at bedside. Patient in sitting position. Sterile prep and drape was performed. [3] ml of 1% lidocaine skin wheal at L[3]- L [4]. Needle introducer advanced. 24 gauge spinal needle advanced x 1 attempt. Clear, free flowing CSF. negative blood, negative paresthesia. Spinal dose given. All needles removed. Patient tolerated procedure.
[2021-09-12] MEDS ORDERED: ESMOLOL 100 MG/10 ML INJ IV ONE (12:42)
--- NOTE | 2021-09-12 12:43 | Procedure Note ---
OB Delivery Note - Delivery Date of Delivery: 09/12/21 Surgeon: RAVEN GUTIERREZ Estimated blood loss: other (800 mL) - Section Preop diagnosis: other (Intractable Abdominal Pain, Cholelithiasis ) Postop diagnosis: same section procedure: section, primary low transverse Disposition: PACU Complications: none Narrative: Please see delivery note - Infant A at 1 minute: 8 at 5 minutes: 9 Infant Gender: Male (3230g (7lb 2oz) @ 1048 am)
--- NOTE | 2021-09-12 12:44 | Operative Report ---
Operative Report Operative Report: Date of procedure: September 12, 2021 Preoperative diagnosis: 1) IUP at 36w3d 2) Cholelithiasis 3) Intractable Abdo coral Pain Postoperative diagnosis: Same Procedure: Primary low transverse section Surgeon: Jeanie Martins M.D. Lease Buyer: Sesar Morfin M.D. Anesthesia: Regional Findings: 1) Viable male , Apgars 8 and 9, weight 3230 g, (7 lb 2 oz) in cephalic presentation. Nuchal cord x 1 2) Normal-appearing uterus ovaries and tubes 3) Normal-appearing appendix per Dr Morfin Estimated blood loss: 970 mL Urine output: clear at the end of the procedure Drains: Jerez to gravity Specimens: None Complications:None. Counts correct x 3 Disposition: Stable to PACU Indication for procedure: Pt is a 26 year old primigravida at 36w3d presents for the third time in two weeks with severe RUQ pain minimally improved by narcotic pain medication and known cholelithiasis. [facility] was consulted with agreement to proceed with delivery, with plan for cholecystectomy later today. Operation in detail: After the risks, benefits, alternatives and complications were explained to the patient she gave informed consent for the procedure. She was subsequently taken to the operating room where regional anesthesia was noted to be adequate. She was placed in the dorsal supine position with leftward tilt and prepped and draped in a normal sterile fashion. heart tones were noted prior to incision. A timeout was performed. A Pfannenstiel skin incision was made with the knife and carried down to the layer of the fascia with the Bovie. The fascia was incised in the midline and the fascial incision was extended bilaterally with the Bovie. The fascial incision was then stretched. The rectus muscles were then in the midline and partially transected for adequate visualization. The peritoneum was then entered bluntly. The peritoneal incision was extended with good visualization of the bladder. The peritoneal incision was then stretched. An Dallin retractor was placed. The bladder blade was then placed. The vesicouterine peritoneum was grasped with smooth pick ups and incised with Metzenbaum scissors. A bladder flap was then created digitally and the bladder blade was replaced. A transverse incision was made in the lower uterine segment with a knife and extended bilaterally with the bandage scissors. Amniotomy was performed with egress of clear fluid. head delivered with ease, nuchal cord was reduced, followed by delivery of the shoulders and body. bulb suctioned at delivery. Cord clamped and cut. handed to NICU staff in attendance. The placenta was then delivered manually. The uterus was then exteriorized and cleared of all clots and debris. The hysterotomy was then reapproximated with 0 Monocryl in a running locked fashion. A second layer of the same suture was used in imbricating fashion. Additional figure of eights of 3-0 Vicryl and 0 Monocryl were used to obtain hemostasis. The hysterotomy was inspected and hemostasis was noted. The gutters were irrigated and cleared of all clots and debris. The uterus was placed back into the peritoneal cavity. The hysterotomy was again inspected and noted to be hemostatic. Surgicel was placed over the hysterotomy. The Dallin retractor was removed. The peritoneum was reapproximated with 0 Monocryl in a running fashion incorporating the rectus muscles. Surgicel was placed over the rectus muscles. The fascia was reapproximated with 0 Vicryl in a running fashion. The subcutaneous tissue was reapproximated with 3-0 Vicryl in a running fashion. The skin was reapproximated with 3-0 Monocryl in a subcuticular fashion. The incision was then covered with steri strips and a pressure dressing. The procedure was then ended. The patient tolerated the procedure well and was taken to the PACU in stable condition. All instrument, lap, and needle counts were correct 3.
--- NOTE | 2021-09-12 13:11 | Procedure Note ---
Date of procedure: 09/12/21 Pre-op diagnosis: Acute cholecystitis Post-op diagnosis: other (Chronic cholecystitis) Procedure: Laparoscopic cholecystectomy Description of procedure: Pt was placed supine on the OR table. GETA was administered. Abdomen was prepped and draped. Proposed trocar sites were infiltrated with 10 ml of 0.5% Marcaine. A small infraumbilical incision was made. Peritoneal cavity was carefully entered and a Brianna port was inserted into the peritoneal cavity. Pneumoperitoneum was established. Three 5 mm ports were inserted in the subxiphoid space, RUQ and right lateral abdomen under direct vision without incident. Gallbladder was examined and did not appear acutely inflamed. Fundus of the gallbladder was grasped and this was retracted cephalad and laterally. Pt was placed head and right side up. The cystic duct and artery were skeletonized and the critical view of safety obtained. Cystic duct was milked towards the gallbladder. Cystic artery and duct were doubly clipped and divided. Gallbladder was dissected off of it's hepatic fossa with cautery. Gallbladder was placed in an endobag and the endobag removed via the periumbilical fascial defect. Pneumoperitoneum was re-established. Upper abdominal ports were removed and there was no bleeding from the port entry sites under low pressure. Brianna port was removed. The infraumbilical fascial defect was closed with 2 interrupted sutures of 0-Vicryl. Skin incisions were closed with running subcuticular sutures of 4-0 Monocryl. Skin glue was applied to all incisions. Pt tolerated the procedure well. Pt was extubated in the OR and was taken to PACU in stable condition. Anesthesia: GETA Surgeon: JOSE CHRISTIAN Estimated blood loss: minimal Pathology: list (Gallbladder) Specimen disposition: to lab Condition: stable Disposition: PACU
[2021-09-12] MEDS ORDERED: BUPIVACAINE/PF (0.25%) 2.5 MG/ML 30 ML VIAL INFILTRATI ONE (13:30)
[2021-09-12] MEDS ORDERED: dexAMETHasone 20 MG/5 ML VIAL ONE (13:31)
[2021-09-12] MEDS ORDERED: HYDROmorphone 0.5 MG/0.5 ML INJ IV PRN ×3 (13:49→15:00)
[2021-09-12] MEDS ORDERED: ONDANSETRON 4 MG/2 ML INJ IV PRN ×2 (13:49→14:53)
[2021-09-12] MEDS ORDERED: NALOXONE 0.4 MG/1 ML INJ IV PRN (14:53)
[2021-09-12] MEDS ORDERED: WITCH HAZEL/ GLYCERIN PAD TP PRN (15:00)
[2021-09-12] MEDS ORDERED: LANOLIN/ZINC/DIMETHICONE (LANSINOH) 7 GM TP PRN (15:00)
[2021-09-12] MEDS: ceFAZolin/NS 1 GM/50 ML 1 GM/50 ML BAG IV SCH ×2 (15:55→23:50)
[2021-09-12] MEDS: D5W/LACTATED RINGERS 1,000 ML IV SCH ×2 (15:57→23:50)
[2021-09-12] MEDS: KETOROLAC 30 MG/1 ML INJ IV SCH ×2 (16:00→22:15)
[2021-09-12] MEDS: oxyCODONE /ACETAMINOPHEN 5-325MG TAB PO PRN ×2 (19:59→23:52)
[2021-09-13 01:18] LABS: Hematocrit 29.9 % (30.3-42.9); Hemoglobin 10.3 gm/dl (10.1-14.3)
[2021-09-13] MEDS: KETOROLAC 30 MG/1 ML INJ IV SCH ×2 (03:55→10:18)
[2021-09-13] MEDS: oxyCODONE /ACETAMINOPHEN 5-325MG TAB PO PRN ×3 (05:47→22:03)
--- NOTE | 2021-09-13 09:59 | Progress Note ---
Assessment and Plan - Patient Problems (1) Acute cholecystitis Current Visit: Yes Status: Acute Plan to address problem: 1) Satisfactory course 2) Pt may be discharged from my perspective. 3) Pt to f/u in my office in 2 weeks. 4) I will sign off. Please call me if additional questions arise. Subjective Date of service: 09/13/21 Patient Reports: Positive: no new complaints, feels better, pain is less Objective Vital Signs - 12hr 09/12/21 09/12/21 09/13/21 22:15 23:52 00:19 Temperature 98.5 F Pulse Rate 111 H Respiratory 18 20 20 Rate Blood Pressure 130/79 O2 Sat by Pulse 92 Oximetry 09/13/21 09/13/21 09/13/21 03:55 04:41 05:47 Temperature 98.6 F Pulse Rate 103 H Respiratory 20 20 20 Rate Blood Pressure 121/81 O2 Sat by Pulse 94 Oximetry 09/13/21 08:42 Temperature 99.5 F Pulse Rate 104 H Respiratory 18 Rate Blood Pressure 129/81 O2 Sat by Pulse 97 Oximetry - Abdomen PM_[id number]_[id number] 4, PM_46_[id number] 6, PM_46_[id number] 8 Hernia: none - Labs 09/13/21 01:04 09/12/21 00:10
[2021-09-13] MEDS ORDERED: MEASLES, MUMPS & RUBELLA 12,500 UNIT/0.5 ML VACCINE SUB-Q ONE (10:00)
[2021-09-13] MEDS: DOCUSATE SODIUM 100 MG CAP PO PRN (10:17)
--- NOTE | 2021-09-13 11:17 | Progress Note ---
Regional Anesthesia Block - Regional Anesthesia Block Start Time: 13:16 Stop Time: 13:30 Performed By:: CHRIS ARENAS Procedure: Patient consented for TAP block for post surgical pain management. Patient identified, monitors placed, and time out performed. TAP identified bilaterally via ultrasound. Skin prepped bilaterally with [chlorhexidine] and [22g stimuplex] needle advanced to the TAP. [Marcaine 0.25% 35ml] injected under ultrasound guidance on the [left] side. [Marcaine 0.25% 35ml] injected under ultrasound guidance on the [right] side. Negative aspiration every 5mL, No change in heart rate or rhythm. Patient tolerated the procedure well. No apparent complications seen.
--- NOTE | 2021-09-13 14:12 | Post Anesthesia Evaluation ---
- Post Anesthesia Evaluation Patient Participated: Yes Airway Patent: Yes Stable Respiratory Function: Yes Nausea/Vomiting: No Temp > 96.8F: Yes Pain Manageable: Yes Adequeate Hydration: Yes Anesthesia Complications: No Block Receding Appropriately: Yes Patient on Ventilator: No
[2021-09-13] MEDS ORDERED: TETANUS,DIPH,PERTUSS(ACELL) VACCINE 0.5 ML SYRINGE IM ONE (16:00)
[2021-09-13 19:13] LABS: Hematocrit 31.7 % (30.3-42.9); Hemoglobin 10.4 gm/dl (10.1-14.3); Mean Corpuscular HGB Conc 33 % (30-34); Mean Corpuscular Volume 96 fl (79-97); Platelet Count 428 K/mm3 (140-440); Red Blood Count 3.29 M/mm3 (3.65-5.03)
[2021-09-13 20:21] LABS: Alanine Aminotransferase 299 units/L (7-56); BUN/Creatinine Ratio 13; Blood Urea Nitrogen 10 mg/dL (7-17); Calcium 8.7 mg/dL (8.4-10.2); Hemolysis Index 0
[2021-09-13 20:34] LABS: Eosinophils % (Manual) 0 % (0.0-4.3); Total Cells Counted 100
[2021-09-13] MEDS: IBUPROFEN 800 MG TAB PO PRN (20:38)
[2021-09-13 21:29] LABS: Platelet Estimate Consistent w Auto
[2021-09-13] MEDS: SIMETHICONE 80 MG CHEW TAB PO PRN (22:06)
[2021-09-14] MEDS: oxyCODONE /ACETAMINOPHEN 5-325MG TAB PO PRN ×5 (02:16→21:46)
[2021-09-14] MEDS: DOCUSATE SODIUM 100 MG CAP PO PRN ×2 (09:57→21:46)
[2021-09-14 12:04] LABS: Alanine Aminotransferase 244 units/L (7-56); BUN/Creatinine Ratio 19; Blood Urea Nitrogen 13 mg/dL (7-17); Calcium 8.8 mg/dL (8.4-10.2); Hemolysis Index 4
[2021-09-14] MEDS: IBUPROFEN 800 MG TAB PO PRN (15:37)
--- NOTE | 2021-09-14 18:40 | Progress Note ---
Assessment and Plan Postop day 1 status post primary L TCS secondary to acute cholecystitis and intractable pain. Patient also had lap vnekata on yesterday. She is doing well today. We will continue routine postop care. Encourage ambulation. Patient taking p.o. pain med. Subjective - Subjective Date of service: 09/14/21 Interval history: Pt is feeling better today. She is complaining of incisional pain. Denies any nausea or vomiting. Patient has had minimal ambulation but she reports having flatus. Patient reports: appetite normal, voiding normally, pain well controlled, flatus, ambulating normally : doing well Objective - Vital Signs Latest vital signs: Vital Signs Temp Pulse Resp BP BP Pulse Ox Pulse Ox 09/14/21 16:30 98.5 F 101 H 20 122/85 98 09/14/21 08:30 98.4 F 92 H 20 118/74 96 09/14/21 08:15 99 09/14/21 06:15 18 09/14/21 02:16 16 09/14/21 00:52 97.6 F 94 H 18 118/82 96 09/13/21 22:03 20 09/13/21 20:38 18 09/13/21 20:30 98 Intake and Output 09/14/21 09/14/21 09/14/21 06:59 14:59 22:59 Intake Total 240 680 320 Balance 240 680 320 Intake: Oral 240 680 320 Other: Total, Intake Amount 120 120 320 # Voids Void 1 1 1 - Exam Breasts: Present: deferred Cardiovascular: Present: Regular rate, Normal S1 Lungs: Present: Clear to auscultation, Normal air movement Abdomen: Present: normal appearance, soft, normal bowel sounds Uterus: Present: normal, firm Extremities: Present: normal Incision: Present: normal, dry, dressed - Labs Labs: Abnormal lab results 09/13/21 09/13/21 09/14/21 Range/Units 18:33 18:33 10:23 WBC 19.7 H (4.5-11.0) K/mm3 RBC 3.29 L (3.65-5.03) M/mm3 RDW 13.0 L (13.2-15.2) % Seg Neuts % (Manual) 75.0 H (40.0-70.0) % Seg Neutrophils # Man 14.8 H (1.8-7.7) K/mm3 Monocytes # (Manual) 1.4 H (0.0-0.8) K/mm3 Basophils # (Manual) 0.2 H (0.0-0.1) K/mm3 Sodium 136 L (137-145) mmol/L AST 530 H 284 H (5-40) units/L ALT 299 H 244 H (7-56) units/L Alkaline Phosphatase 249 H 260 H (35-129) units/L Total Protein 5.9 L 5.5 L (6.3-8.2) g/dL Albumin 3.0 L 3.0 L (3.9-5) g/dL
--- NOTE | 2021-09-14 18:43 | Progress Note ---
Assessment and Plan Postop day 2 status post LTCS. Patient doing well. Encourage ambulation. For discharge on tomorrow. Subjective - Subjective Date of service: 09/14/21 Interval history: Pt is feeling better today. She is complaining of incisional pain. Denies any nausea or vomiting. Patient has had minimal ambulation but she reports having flatus. Patient reports: appetite normal, voiding normally, pain well controlled, flatus, ambulating normally : doing well Objective - Vital Signs Latest vital signs: Vital Signs Temp Pulse Resp BP BP Pulse Ox Pulse Ox 09/14/21 16:30 98.5 F 101 H 20 122/85 98 09/14/21 08:30 98.4 F 92 H 20 118/74 96 09/14/21 08:15 99 09/14/21 06:15 18 09/14/21 02:16 16 09/14/21 00:52 97.6 F 94 H 18 118/82 96 09/13/21 22:03 20 09/13/21 20:38 18 09/13/21 20:30 98 Intake and Output 09/14/21 09/14/21 09/14/21 06:59 14:59 22:59 Intake Total 240 680 320 Balance 240 680 320 Intake: Oral 240 680 320 Other: Total, Intake Amount 120 120 320 # Voids Void 1 1 1 - Exam Breasts: Present: deferred Cardiovascular: Present: Regular rate, Normal S1, Normal S2 Lungs: Present: Clear to auscultation, Normal air movement Abdomen: Present: normal appearance, soft Uterus: Present: normal, firm Extremities: Present: normal Incision: Present: normal, dry, intact - Labs Labs: Abnormal lab results 09/13/21 09/13/21 09/14/21 Range/Units 18:33 18:33 10:23 WBC 19.7 H (4.5-11.0) K/mm3 RBC 3.29 L (3.65-5.03) M/mm3 RDW 13.0 L (13.2-15.2) % Seg Neuts % (Manual) 75.0 H (40.0-70.0) % Seg Neutrophils # Man 14.8 H (1.8-7.7) K/mm3 Monocytes # (Manual) 1.4 H (0.0-0.8) K/mm3 Basophils # (Manual) 0.2 H (0.0-0.1) K/mm3 Sodium 136 L (137-145) mmol/L AST 530 H 284 H (5-40) units/L ALT 299 H 244 H (7-56) units/L Alkaline Phosphatase 249 H 260 H (35-129) units/L Total Protein 5.9 L 5.5 L (6.3-8.2) g/dL Albumin 3.0 L 3.0 L (3.9-5) g/dL
--- NOTE | 2021-09-14 18:48 | Discharge Summary ---
Providers - Providers Date of Admission: 09/11/21 23:54 Date of discharge: 09/15/21 Attending physician: EBONIE VYAS 09/12/21 07:12 Consult to Physician [CONS] Urgent Comment: Consulting Provider: ANEL KIM Physician Instructions: Reason For Exam: IUP at 36w3d, cholelithiasis, intractable abd pain 09/12/21 07:21 Consult to Physician [CONS] Urgent Comment: Consulting Provider: JOSE CHRISTIAN Physician Instructions: Reason For Exam: IUP at 36wks, Cholelithiasis, Intractable Abd Pain 09/12/21 14:53 Consult to Sfdc Architect [CONS] Routine Reason For Exam: Primary care physician: EBONIE VYAS Hospitalization Reason for admission: section Delivery: Procedure: primary low transverse Incision: normal, dry, intact Other procedures: none complications: none Discharge diagnosis: IUP at term delivered baby: male Hospital course: remarkable Condition at discharge: Good Disposition: 01 HOME / SELF CARE / HOMELESS Plan - Discharge Medications Prescriptions: Docusate Sodium [Colace CAP] 100 mg PO Q12H #60 capsule Ibuprofen [Motrin 800 MG tab] 800 mg PO Q6H PRN #40 tablet PRN Reason: Pain, Moderate (4-6) oxyCODONE /ACETAMINOPHEN [Percocet 5/325 mg] 2 tab PO Q4H PRN #30 tablet PRN Reason: Pain, Moderate (4-6) - Provider Discharge Summary Activity: routine, no sex for 6 weeks, no heavy lifting 4 weeks, no strenuous exercise Instructions: routine Additional instructions: [] Smoking cessation referral if applicable(refer to patient education folder for contact #) [] Refer to [facility]'s [facility] Booklet Call your doctor immediately for: * Fever > 100.5 * Heavy vaginal bleeding ( >1 pad per hour) * Severe persistent headache * Shortness of breath * Reddened, hot, painful area to leg or breast * Drainage or odor from incision. * Keep incision clean and dry at all times and follow doctor's instructions regarding bathing/showering - Follow up plan Follow up: EBONIE VYAS MD [Primary Care Provider] - 14 Days
[2021-09-15] MEDS: IBUPROFEN 800 MG TAB PO PRN (02:27)
[2021-09-15] MEDS: SIMETHICONE 80 MG CHEW TAB PO PRN ×2 (02:27→08:25)
[2021-09-15] MEDS: oxyCODONE /ACETAMINOPHEN 5-325MG TAB PO PRN (09:51)
[2021-09-15 19:58] VITALS: BP 121/86
== END 2021-09-15 14:20 | disposition home or self-care (01) | DRG 765 ==
LOC: TRG 22:53 → APU 22:58 → OBSVTOIN 23:54 → TRG 23:54 → LD 23:54 → APU 09-12 10:15 → OB 09-12 14:07
PROVIDERS: ADMIT Obstetrics & Gynecology; ATTEND Obstetrics & Gynecology
PROC: 10D00Z1 Extraction of Products of Conception, Low, Open Approach (ICD-10-PCS; principal; 2021-09-12)
PROC: 0FT44ZZ Resection of Gallbladder, Percutaneous Endoscopic Approach (ICD-10-PCS; 2021-09-12)
PROC: 3E0T3BZ Introduction of Anesthetic Agent into Peripheral Nerves and Plexi, Percutaneous Approach (ICD-10-PCS; 2021-09-13)
PROC: 3E0234Z Introduction of Serum, Toxoid and Vaccine into Muscle, Percutaneous Approach (ICD-10-PCS; 2021-09-13)
DX: O99.62 Diseases of the digestive system complicating childbirth (principal); K80.00 Calculus of gallbladder with acute cholecystitis without obstruction; Z37.0 Single live birth; Z3A.36 36 weeks gestation of pregnancy; Z20.822 Contact with and (suspected) exposure to COVID-19; O99.354 Diseases of the nervous system complicating childbirth; G43.909 Migraine, unspecified, not intractable, without status migrainosus; O99.52 Diseases of the respiratory system complicating childbirth; J45.909 Unspecified asthma, uncomplicated; O69.81X0 Labor and delivery complicated by cord around neck, without compression, not applicable or unspecified; Z23 Encounter for immunization
CPT/HCPCS: 36415; 76700; 76815; 76819; 80053; 81001; 82150; 83690; 85007; 85014; 85018; 85025; 86850; 86900; 86901; 88304; G0378; J3490; J7060; J7121; J0690; J0702; J1100; J1170; J1885; J2270; J2405; J2704; J2765; J3010; J7120; U0003